=== PATIENT | male | born 1960 | race Hispanic/Latino ===

== ENCOUNTER 2017-07-05 19:31 | Inpatient (IN) | payer OTHER ==
[~2017-07-05] VITALS: Ht 180.3 cm; Wt 103.3 kg
[2017-07-05] MEDS ORDERED: HEPARIN SODIUM 1000UNIT/ML 10ML VIAL ONE ×2 (19:38→21:42)
[2017-07-05] MEDS ORDERED: ATROPINE SULFATE 0.1 MG/ML 10 ML SYG IVP ONE (19:38)
[2017-07-05] MEDS ORDERED: ISOVUE-370 50ML VIAL IV ONE (19:39)
[2017-07-05] MEDS ORDERED: LIDOCAINE HCL 2% 20ML ONE (19:39)
[2017-07-05] MEDS ORDERED: NITROGLYCERIN 5 MG/ML 10 ML VIAL IV ONE (19:39)
[2017-07-05] MEDS ORDERED: IOPAMIDOL-370 100 ML VIAL IV ONE (19:39)
[2017-07-05] MEDS ORDERED: DOPAMINE HCL 400 MG/D5%-WATER 0 ML IV ONE (19:40)
[2017-07-05] MEDS ORDERED: LIDOCAINE PF 2% 5ML ABBOJECT ONE (20:48)
[2017-07-05] MEDS ORDERED: LIDOCAINE 2G/250ML 0 ML IV ONE (20:48)
[2017-07-05] MEDS ORDERED: AMIODARONE HCL 900MG/18ML IV ONE ×2 (20:49→22:01)
[2017-07-05] MEDS ORDERED: PROPOFOL 10 MG/ML 20ML VIAL IV ONE (20:56)
[2017-07-05] MEDS ORDERED: MIDAZOLAM HCL 1 MG/ML 2ML VIAL ONE (20:57)
[2017-07-05] MEDS ORDERED: PROPOFOL 1000 MG/100 ML 100 ML IV ONE (20:57)
[2017-07-05] MEDS ORDERED: EPTIFIBATIDE 2 MG/ML 10 ML VIAL IVP ONE (21:32)
[2017-07-05] MEDS ORDERED: SODIUM CHLORIDE 0.9% 500ML 500 ML IV ONE (22:01)
[2017-07-05] MEDS ORDERED: PROPOFOL 1000 MG/100 ML IV PRN (22:30)
[2017-07-05] MEDS ORDERED: DEXTROSE 50%-WATER 50 ML DISP.SYRIN IV PRN (22:30)
[2017-07-05] MEDS ORDERED: ONDANSETRON HCL 4 MG/2 ML VIAL IVP PRN (22:30)
[2017-07-05] MEDS ORDERED: AMIODARONE HCL 900 MG in DEXTROSE 5%-WATER 500 ML IV SCH (22:30)
[2017-07-05 22:58] VITALS: BP 114/78
[2017-07-05 23:00] VITALS: BP 120/78
[2017-07-05] MEDS: PROPOFOL 1000 MG/100 ML 100 ML IV PRN (23:27)
[2017-07-05 23:30] VITALS: BP 107/71
[2017-07-05] MEDS: SODIUM CHLORIDE 0.9% 1000ML 1,000 ML IV SCH (23:30)
[2017-07-05 23:41] LABS: CREATINE KINASE MB 219.3 ng/mL (0.5-3.6)
[2017-07-05 23:45] VITALS: BP 114/69
[2017-07-06] VITALS (31 sets, daily range): BP systolic 81–122; BP diastolic 51–83
[2017-07-06 00:09] LABS: TROPONIN I 107.47 ng/mL (0.00-0.06)
[2017-07-06 00:56] LABS: HEMATOCRIT 48.9 % (42-54); MEAN CORPUSCULAR HEMOGLOBIN 28.3 pg (27.0-33.0); MEAN CORPUSCULAR HGB CONC 32.6 g/dL (32.0-36.0); MEAN CORPUSCULAR VOLUME 86.9 fL (79-99); PLATELET COUNT (AUTO) 253 K/uL (130-400); RED BLOOD CELL COUNT(AUTO) 5.63 MIL/uL (4.50-6.20); RED CELL DISTRIBUTION WIDTH 14.1 % (11.0-15.5); WHITE BLOOD COUNT (AUTO) 20.2 K/uL (4.8-10.8)
[2017-07-06] MEDS ORDERED: GLIP5TAB11 PO (01:38)
[2017-07-06] MEDS ORDERED: GLIP10TA9 PO (01:38)
[2017-07-06] MEDS ORDERED: METF500T6 PO (01:38)
[2017-07-06] MEDS: SODIUM CHLORIDE 0.9% 1000ML 1,000 ML IV SCH (01:44)
[2017-07-06] MEDS ORDERED: NOREPINEPHRINE 4MG/NS 250ML 250 ML IV PRN (02:00)
[2017-07-06] MEDS ORDERED: FENTANYL 2500MCG+NS 250ML 250 ML IV PRN (02:00)
[2017-07-06] MEDS: PROPOFOL 1000 MG/100 ML 100 ML IV PRN ×2 (02:30→05:03)
[2017-07-06 04:51] LABS: HEMATOCRIT 47.3 % (42-54); MEAN CORPUSCULAR HEMOGLOBIN 28.4 pg (27.0-33.0); MEAN CORPUSCULAR HGB CONC 32.8 g/dL (32.0-36.0); MEAN CORPUSCULAR VOLUME 86.4 fL (79-99); PLATELET COUNT (AUTO) 260 K/uL (130-400); RED BLOOD CELL COUNT(AUTO) 5.47 MIL/uL (4.50-6.20); RED CELL DISTRIBUTION WIDTH 14.6 % (11.0-15.5); WHITE BLOOD COUNT (AUTO) 12.8 K/uL (4.8-10.8)
[2017-07-06 05:06] LABS: ABG BASE EXCESS -5.4 mmol/L (-2.0-3.0); ABG HCO3 19.8 mmol/L (21.0-28.0); ABG OXYGEN SATURATION 99.1 % (95.0-99.0); ABG PCO2 38 mmHg (35-48)
[2017-07-06 05:34] LABS: CREATININE 1.2 mg/dL (0.5-1.5); MAGNESIUM 2.2 mg/dL (1.80-2.40); POTASSIUM 4.6 mmol/L (3.5-5.1)
[2017-07-06 06:27] LABS: TROPONIN I 204.31 ng/mL (0.00-0.06)
[2017-07-06] MEDS: INSULIN HUMULIN R 100 UNIT/ML 3ML SQ SCH ×4 (06:55→21:16)
[2017-07-06 08:46] LABS: HEMATOCRIT 47.3 % (42-54); MEAN CORPUSCULAR HEMOGLOBIN 28.3 pg (27.0-33.0); MEAN CORPUSCULAR HGB CONC 32.8 g/dL (32.0-36.0); MEAN CORPUSCULAR VOLUME 86.4 fL (79-99); PLATELET COUNT (AUTO) 252 K/uL (130-400); RED BLOOD CELL COUNT(AUTO) 5.48 MIL/uL (4.50-6.20); RED CELL DISTRIBUTION WIDTH 14.2 % (11.0-15.5); WHITE BLOOD COUNT (AUTO) 11.1 K/uL (4.8-10.8)
[2017-07-06] MEDS ORDERED: METOPROLOL TARTRATE 25 MG TAB PO SCH (09:00)
[2017-07-06] MEDS ORDERED: LISINOPRIL 10 MG TABLET PO SCH (09:00)
[2017-07-06] MEDS: METOPROLOL TARTRATE 25 MG TAB PO SCH ×2 (09:00→17:00)
[2017-07-06] MEDS: CHLORDIAZEPOXIDE HCL 25 MG CAP PO SCH ×2 (09:00→17:00)
[2017-07-06] MEDS: M.V.I. IV [ADULT] 10 ML, FOLIC ACID 1 MG, THIAMINE HCL 100 MG in SODIUM CHLORIDE 0.9% 1... IV SCH (09:16)
[2017-07-06 09:55] LABS: AMPHET/METH SCREEN,URINE NEGATIVE (NEGATIVE); BARBITURATE SCREEN, URINE NEGATIVE (NEGATIVE); BENZODIAZEPINES SCREEN,URINE POSITIVE (NEGATIVE); CANNABINOID SCREEN,URINE NEGATIVE (NEGATIVE); COCAINE SCREEN,URINE NEGATIVE (NEGATIVE); OPIATE SCREEN,URINE NEGATIVE (NEGATIVE); PHENCYCLIDINE SCREEN,URINE NEGATIVE (NEGATIVE)
[2017-07-06 10:30] LABS: ABG OXYGEN SATURATION 95.2 % (95.0-99.0); ABG PCO2 33 mmHg (35-48)
[2017-07-06] MEDS: THIAMINE HCL 100 MG/ML 2ML VIAL IVP SCH ×2 (11:48→21:07)
[2017-07-06 12:36] LABS: ALBUMIN 3.2 g/dL (3.5-5.0); BILIRUBIN,DIRECT 0.1 mg/dL (0.0-0.3); BILIRUBIN,TOTAL 0.6 mg/dL (0.2-1.0); CREATINE KINASE MB 262.2 ng/mL (0.5-3.6); TOTAL PROTEIN, SERUM 6.8 g/dL (6.0-8.3)
[2017-07-06] MEDS: FOLIC ACID 1 MG TABLET PO SCH (12:57)
[2017-07-06] MEDS: PANTOPRAZOLE SODIUM 40 MG TABLET.DR PO SCH (12:57)
[2017-07-06] MEDS: ASPIRIN 81MG TAB.CHEW PO SCH (12:57)
[2017-07-06] MEDS: MULTIVITAMIN TABLET PO SCH (12:57)
[2017-07-06] MEDS: TICAGRELOR 90 MG TABLET PO SCH ×2 (12:57→21:07)
[2017-07-06 13:52] LABS: TROPONIN I 120.09 ng/mL (0.00-0.06)
[2017-07-06] MEDS: GLIPIZIDE 5 MG TABLET PO SCH (17:19)
[2017-07-06] MEDS ORDERED: SODIUM CHLORIDE 0.9% 250 ML IV SCH ×2 (17:30→20:30)
[2017-07-06 20:30] LABS: HEMATOCRIT 40.6 % (42-54)
[2017-07-06] MEDS: ATORVASTATIN CALCIUM 20 MG TABLET PO SCH (21:08)
[2017-07-06] MEDS ORDERED: DOBUTAMINE 250MG/D5 250ML 250 ML IV SCH (22:15)
[2017-07-07] VITALS (20 sets, daily range): BP systolic 88–128; BP diastolic 47–76
[2017-07-07] MEDS: METOPROLOL TARTRATE 25 MG TAB PO SCH ×2 (01:00→21:22)
[2017-07-07] MEDS: CHLORDIAZEPOXIDE HCL 25 MG CAP PO SCH ×2 (01:00→08:22)
[2017-07-07 04:00] LABS: HEMATOCRIT 39.7 % (42-54); MEAN CORPUSCULAR HEMOGLOBIN 29.6 pg (27.0-33.0); MEAN CORPUSCULAR HGB CONC 34.1 g/dL (32.0-36.0); MEAN CORPUSCULAR VOLUME 86.6 fL (79-99); PLATELET COUNT (AUTO) 202 K/uL (130-400); RED BLOOD CELL COUNT(AUTO) 4.59 MIL/uL (4.50-6.20); WHITE BLOOD COUNT (AUTO) 13.8 K/uL (4.8-10.8)
[2017-07-07 04:16] LABS: POTASSIUM 3.1 mmol/L (3.5-5.1)
[2017-07-07] MEDS: INSULIN HUMULIN R 100 UNIT/ML 3ML SQ SCH ×4 (06:54→21:27)
[2017-07-07] MEDS: MULTIVITAMIN TABLET PO SCH (08:21)
[2017-07-07] MEDS: GLIPIZIDE 5 MG TABLET PO SCH ×2 (08:21→16:14)
[2017-07-07] MEDS: PANTOPRAZOLE SODIUM 40 MG TABLET.DR PO SCH (08:21)
[2017-07-07] MEDS: ASPIRIN 81MG TAB.CHEW PO SCH (08:22)
[2017-07-07] MEDS: TICAGRELOR 90 MG TABLET PO SCH ×2 (08:22→21:20)
[2017-07-07] MEDS: THIAMINE HCL 100 MG/ML 2ML VIAL IVP SCH ×2 (08:22→21:22)
[2017-07-07] MEDS: FOLIC ACID 1 MG TABLET PO SCH (08:22)
[2017-07-07] MEDS ORDERED: POTASSIUM CHLORIDE 10% ELIXIR 20 MEQ/15 ML UDCUP PO PRN (09:30)
[2017-07-07] MEDS ORDERED: LIDOCAINE HCL-MPF 1% 2ML VIAL IVP PRN (09:30)
[2017-07-07] MEDS ORDERED: POTASSIUM CHLORIDE 20MEQ/100ML 100 ML IV PRN (09:30)
[2017-07-07] MEDS ORDERED: POTASSIUM CHLORIDE 20 MEQ ERTAB PO ONE (09:34)
[2017-07-07] MEDS: POTASSIUM CHLORIDE 20 MEQ ERTAB PO PRN (09:36)
[2017-07-07] MEDS: LISINOPRIL 5 MG TABLET PO SCH (09:37)
[2017-07-07] MEDS: M.V.I. IV [ADULT] 10 ML, FOLIC ACID 1 MG, THIAMINE HCL 100 MG in SODIUM CHLORIDE 0.9% 1... IV SCH (09:37)
[2017-07-07] MEDS: ENOXAPARIN SODIUM 40 MG/0.4 ML SYRINGE SQ SCH (09:40)
[2017-07-07] MEDS ORDERED: METOPROLOL TARTRATE 25 MG TAB PO SCH ×2 (11:00→21:00)
[2017-07-07] MEDS ORDERED: ONDANSETRON HCL MDV 20ML 2 MG/ML VIAL IVP PRN (14:21)
[2017-07-07] MEDS ORDERED: CHLORDIAZEPOXIDE HCL 25 MG CAP PO SCH (21:00)
[2017-07-07] MEDS: ATORVASTATIN CALCIUM 20 MG TABLET PO SCH (21:20)
[2017-07-08] VITALS (8 sets, daily range): BP systolic 101–126; BP diastolic 63–75
[2017-07-08 03:54] LABS: HEMATOCRIT 36.8 % (42-54); MEAN CORPUSCULAR HEMOGLOBIN 30.1 pg (27.0-33.0); MEAN CORPUSCULAR HGB CONC 34.7 g/dL (32.0-36.0); MEAN CORPUSCULAR VOLUME 86.8 fL (79-99); PLATELET COUNT (AUTO) 166 K/uL (130-400); RED BLOOD CELL COUNT(AUTO) 4.24 MIL/uL (4.50-6.20); WHITE BLOOD COUNT (AUTO) 11.6 K/uL (4.8-10.8)
[2017-07-08 04:05] LABS: BAND NEUTROPHILS % (MANUAL) 4 % (0-2); LYMPHOCYTES % (MANUAL) 15 % (22-44); MONOCYTES % (MANUAL) 7 % (2-9); SEGMENTED NEUTROPHILS % 74 % (40-70)
[2017-07-08 04:06] LABS: MAN.DIFF COMMENT-IMPRESSION MANUAL DIFFERENTIAL; PLATELET MORPHOLOGY COMMENT ADEQUATE
[2017-07-08 04:15] LABS: ALBUMIN 2.7 g/dL (3.5-5.0); BILIRUBIN,TOTAL 1.2 mg/dL (0.2-1.0); CREATININE 0.9 mg/dL (0.5-1.5); MAGNESIUM 1.5 mg/dL (1.80-2.40); PHOSPHORUS 2.5 mg/dL (2.5-4.9); POTASSIUM 3.5 mmol/L (3.5-5.1); TOTAL PROTEIN, SERUM 6.1 g/dL (6.0-8.3)
[2017-07-08] MEDS: POTASSIUM CHLORIDE 20 MEQ ERTAB PO PRN ×2 (07:21→10:30)
[2017-07-08] MEDS: INSULIN HUMULIN R 100 UNIT/ML 3ML SQ SCH ×4 (07:28→21:19)
[2017-07-08] MEDS: MULTIVITAMIN TABLET PO SCH (08:34)
[2017-07-08] MEDS: GLIPIZIDE 5 MG TABLET PO SCH ×2 (08:35→16:01)
[2017-07-08] MEDS: METOPROLOL TARTRATE 25 MG TAB PO SCH ×2 (08:35→20:52)
[2017-07-08] MEDS: TICAGRELOR 90 MG TABLET PO SCH ×2 (08:36→20:52)
[2017-07-08] MEDS: THIAMINE HCL 100 MG/ML 2ML VIAL IVP SCH (08:36)
[2017-07-08] MEDS: PANTOPRAZOLE SODIUM 40 MG TABLET.DR PO SCH (08:36)
[2017-07-08] MEDS: FOLIC ACID 1 MG TABLET PO SCH (08:36)
[2017-07-08] MEDS: ASPIRIN 81MG TAB.CHEW PO SCH (08:36)
[2017-07-08] MEDS: LISINOPRIL 5 MG TABLET PO SCH (08:36)
[2017-07-08] MEDS: ENOXAPARIN SODIUM 40 MG/0.4 ML SYRINGE SQ SCH (08:37)
[2017-07-08] MEDS: M.V.I. IV [ADULT] 10 ML, FOLIC ACID 1 MG, THIAMINE HCL 100 MG in SODIUM CHLORIDE 0.9% 1... IV SCH (10:24)
[2017-07-08] MEDS: MAGNESIUM 2GM PREMIX 50ML 50 ML IV PRN ×2 (10:30→18:02)
[2017-07-08] MEDS ORDERED: CHLORDIAZEPOXIDE HCL 25 MG CAP PO PRN (11:00)
[2017-07-08] MEDS: FUROSEMIDE 10 MG/ML 2ML VIAL IV SCH (12:11)
[2017-07-08] MEDS: SPIRONOLACTONE 25 MG TAB PO SCH (12:11)
[2017-07-08] MEDS: THIAMINE HCL 100 MG TABLET PO SCH (20:51)
[2017-07-08] MEDS: ATORVASTATIN CALCIUM 20 MG TABLET PO SCH (20:53)
[2017-07-09 04:06] VITALS: BP 104/70
[2017-07-09 04:53] LABS: CREATININE 0.9 mg/dL (0.5-1.5); MAGNESIUM 1.7 mg/dL (1.80-2.40); POTASSIUM 3.6 mmol/L (3.5-5.1)
[2017-07-09] MEDS: INSULIN HUMULIN R 100 UNIT/ML 3ML SQ SCH ×4 (06:25→21:00)
[2017-07-09] MEDS: FUROSEMIDE 10 MG/ML 2ML VIAL IV SCH (07:02)
[2017-07-09] MEDS ORDERED: MAGN400T25 PO (07:09)
[2017-07-09 07:15] VITALS: BP 102/70
[2017-07-09] MEDS: THIAMINE HCL 100 MG TABLET PO SCH ×2 (07:42→20:23)
[2017-07-09] MEDS: FOLIC ACID 1 MG TABLET PO SCH (07:42)
[2017-07-09] MEDS: METOPROLOL TARTRATE 25 MG TAB PO SCH ×2 (07:42→20:22)
[2017-07-09] MEDS: TICAGRELOR 90 MG TABLET PO SCH ×2 (07:42→20:23)
[2017-07-09] MEDS: LISINOPRIL 5 MG TABLET PO SCH (07:42)
[2017-07-09] MEDS: MULTIVITAMIN TABLET PO SCH (07:42)
[2017-07-09] MEDS: PANTOPRAZOLE SODIUM 40 MG TABLET.DR PO SCH (07:43)
[2017-07-09] MEDS: SPIRONOLACTONE 25 MG TAB PO SCH (07:43)
[2017-07-09] MEDS: ASPIRIN 81MG TAB.CHEW PO SCH (07:43)
[2017-07-09] MEDS: ENOXAPARIN SODIUM 40 MG/0.4 ML SYRINGE SQ SCH (07:43)
[2017-07-09] MEDS: GLIPIZIDE 5 MG TABLET PO SCH ×2 (07:43→16:39)
[2017-07-09] MEDS ORDERED: CEFTRIAXONE 1GM/D5W 50ML 50 ML IV SCH (09:15)
[2017-07-09] MEDS: METFORMIN HCL 500 MG TABLET PO SCH ×2 (09:31→20:23)
[2017-07-09] MEDS: CEFTRIAXONE SODIUM 1 GM IVP SCH (09:31)
[2017-07-09 12:05] VITALS: BP 108/72
[2017-07-09] MEDS ORDERED: MAGNESIUM 2GM PREMIX 50ML 50 ML IV SCH (15:00)
[2017-07-09] MEDS: MAGNESIUM 2GM PREMIX 50ML 50 ML IV PRN (15:14)
[2017-07-09 15:55] VITALS: BP 105/71
[2017-07-09 19:15] VITALS: BP 122/82
[2017-07-09] MEDS: ATORVASTATIN CALCIUM 20 MG TABLET PO SCH (20:23)
[2017-07-09 23:48] VITALS: BP 103/71
[2017-07-10 03:22] VITALS: BP 102/70
[2017-07-10 04:41] LABS: HEMATOCRIT 34.5 % (42-54); MEAN CORPUSCULAR HEMOGLOBIN 29.5 pg (27.0-33.0); MEAN CORPUSCULAR HGB CONC 34.4 g/dL (32.0-36.0); MEAN CORPUSCULAR VOLUME 85.5 fL (79-99); PLATELET COUNT (AUTO) 185 K/uL (130-400); RED BLOOD CELL COUNT(AUTO) 4.04 MIL/uL (4.50-6.20); RED CELL DISTRIBUTION WIDTH 14.2 % (11.0-15.5)
[2017-07-10 05:07] LABS: CREATININE 0.9 mg/dL (0.5-1.5); MAGNESIUM 1.6 mg/dL (1.80-2.40); POTASSIUM 3.7 mmol/L (3.5-5.1)
[2017-07-10 05:44] LABS: BAND NEUTROPHILS % (MANUAL) 2 % (0-2); EOSINOPHILS % (MANUAL) 1 % (1-6); LYMPHOCYTES % (MANUAL) 24 % (22-44); MAN.DIFF COMMENT-IMPRESSION MANUAL DIFFERENTIAL; MONOCYTES % (MANUAL) 5 % (2-9); PLATELET MORPHOLOGY COMMENT ADEQUATE; SEGMENTED NEUTROPHILS % 68 % (40-70)
[2017-07-10] MEDS: INSULIN HUMULIN R 100 UNIT/ML 3ML SQ SCH ×2 (06:06→12:44)
[2017-07-10 07:45] VITALS: BP 120/77
[2017-07-10] MEDS ORDERED: ASPI-555 PO (09:48)
[2017-07-10] MEDS ORDERED: LISI2.5T2 PO (09:48)
[2017-07-10] MEDS ORDERED: METO-408 PO (09:48)
[2017-07-10] MEDS ORDERED: PRAS10TA6 PO (09:48)
[2017-07-10] MEDS ORDERED: ATOR40TA69 PO (09:48)
[2017-07-10] MEDS ORDERED: AMOX-426 PO (09:50)
[2017-07-10] MEDS: METFORMIN HCL 500 MG TABLET PO SCH (09:51)
[2017-07-10] MEDS: SPIRONOLACTONE 25 MG TAB PO SCH (09:51)
[2017-07-10] MEDS: ASPIRIN 81MG TAB.CHEW PO SCH (09:52)
[2017-07-10] MEDS: FOLIC ACID 1 MG TABLET PO SCH (09:52)
[2017-07-10] MEDS: PANTOPRAZOLE SODIUM 40 MG TABLET.DR PO SCH (09:52)
[2017-07-10] MEDS: THIAMINE HCL 100 MG TABLET PO SCH (09:52)
[2017-07-10] MEDS: GLIPIZIDE 5 MG TABLET PO SCH (09:52)
[2017-07-10] MEDS: TICAGRELOR 90 MG TABLET PO SCH (09:52)
[2017-07-10] MEDS: MULTIVITAMIN TABLET PO SCH (09:52)
[2017-07-10] MEDS: METOPROLOL TARTRATE 25 MG TAB PO SCH (09:53)
[2017-07-10] MEDS: LISINOPRIL 5 MG TABLET PO SCH (09:53)
[2017-07-10] MEDS: CEFTRIAXONE SODIUM 1 GM IVP SCH (09:54)
[2017-07-10] MEDS: MAGNESIUM 2GM PREMIX 50ML 50 ML IV PRN (09:55)
[2017-07-10] MEDS: ENOXAPARIN SODIUM 40 MG/0.4 ML SYRINGE SQ SCH (09:56)
[2017-07-10] MEDS: FUROSEMIDE 10 MG/ML 2ML VIAL IV SCH (12:00)
[2017-07-10 12:02] VITALS: BP 109/71
== END 2017-07-10 14:25 | disposition home or self-care (01) | DRG 246 ==
LOC: 2CH 20:55 → 2DH 07-08 13:06
PROVIDERS: ADMIT Family Medicine; ATTEND Family Medicine
PROC: B2161ZZ Fluoroscopy of Right and Left Heart using Low Osmolar Contrast (ICD-10-PCS; principal; 2017-07-05)
PROC: 027135Z Dilation of Coronary Artery, Two Arteries with Two Drug-eluting Intraluminal Devices, Percutaneous Approach (ICD-10-PCS; 2017-07-05)
PROC: B2111ZZ Fluoroscopy of Multiple Coronary Arteries using Low Osmolar Contrast (ICD-10-PCS; 2017-07-05)
PROC: 5A12012 Performance of Cardiac Output, Single, Manual (ICD-10-PCS; 2017-07-05)
PROC: 5A2204Z Restoration of Cardiac Rhythm, Single (ICD-10-PCS; 2017-07-05)
PROC: 0BH17EZ Insertion of Endotracheal Airway into Trachea, Via Natural or Artificial Opening (ICD-10-PCS; 2017-07-05)
PROC: 4A023N7 Measurement of Cardiac Sampling and Pressure, Left Heart, Percutaneous Approach (ICD-10-PCS; 2017-07-05)
PROC: 5A1935Z Respiratory Ventilation, Less than 24 Consecutive Hours (ICD-10-PCS; 2017-07-05)
DX: I21.19 ST elevation (STEMI) myocardial infarction involving other coronary artery of inferior wall (principal); I46.9 Cardiac arrest, cause unspecified; J69.0 Pneumonitis due to inhalation of food and vomit; J96.00 Acute respiratory failure, unspecified whether with hypoxia or hypercapnia; I49.01 Ventricular fibrillation; I47.2 Ventricular tachycardia; E11.9 Type 2 diabetes mellitus without complications; E66.9 Obesity, unspecified; E78.5 Hyperlipidemia, unspecified; F10.20 Alcohol dependence, uncomplicated; I10 Essential (primary) hypertension; I25.10 Atherosclerotic heart disease of native coronary artery without angina pectoris; I25.5 Ischemic cardiomyopathy; I25.2 Old myocardial infarction; Z68.30 Body mass index [BMI] 30.0-30.9, adult; Z72.0 Tobacco use; Z79.82 Long term (current) use of aspirin; Z79.84 Long term (current) use of oral hypoglycemic drugs; Z79.899 Other long term (current) drug therapy; Z91.14 Patient's other noncompliance with medication regimen; Z83.3 Family history of diabetes mellitus
CPT/HCPCS: 36415; 36600; 71045; 80048; 80053; 80061; 80076; 80305; 82550; 82553; 82803; 82948; 83735; 83874; 83880; 84100; 84484; 85014; 85018; 85025; 85027; 85347; 85384; 87071; 87205; 92610; 93005; 93306; 93308; 93458; 94002; 94003; A4218; C1760; C1769; C1887; C1894; C9600; J0282; J0461; J0696; J1250; J1265; J1327; J1644; J1650; J1815; J1940; J2001; J2250; J2704; J3411; J3475; J3490; J7030; J7040; Q9967